=== PATIENT | female | born 1990 ===

== ENCOUNTER → 2020-03-10 | Outpatient (CLI) | payer OTHER | END | disposition home or self-care (01) | LOC: PRENATAL 15:00 | PROVIDERS: ATTEND Obstetrics & Gynecology Maternal & Fetal Medicine | DX: O35.0XX1 Maternal care for (suspected) central nervous system malformation in fetus, fetus 1 (principal); O35.3XX1 Maternal care for (suspected) damage to fetus from viral disease in mother, fetus 1; O98.512 Other viral diseases complicating pregnancy, second trimester; Z36.89 Encounter for other specified antenatal screening; Z3A.28 28 weeks gestation of pregnancy ==

== ENCOUNTER 2020-06-04 14:45 | Inpatient (IN) | payer OTHER ==
[~2020-06-04] VITALS: Ht 160 cm; Wt 3.2 kg
[2020-06-08] MEDS ORDERED: PRENATABS RX T1 EACH PO (08:32)
[2020-06-08] MEDS ORDERED: FOLIC ACID0.4 MG PO (08:33)
== END 2020-06-10 15:56 | disposition home or self-care (01) | DRG 788 ==
LOC: LDR 06-08 07:47 → OB/GYN 06-08 14:45 → O/R 06-08 19:56 → OB/GYN 06-08 21:58
PROVIDERS: ADMIT Obstetrics & Gynecology; ATTEND Obstetrics & Gynecology
PROC: 10907ZC Drainage of Amniotic Fluid, Therapeutic from Products of Conception, Via Natural or Artificial Opening (ICD-10-PCS; 2020-06-08)
PROC: 3E0P7VZ Introduction of Hormone into Female Reproductive, Via Natural or Artificial Opening (ICD-10-PCS; 2020-06-08)
PROC: 4A1HXFZ Monitoring of Products of Conception, Cardiac Rhythm, External Approach (ICD-10-PCS; 2020-06-08)
PROC: 10D00Z1 Extraction of Products of Conception, Low, Open Approach (ICD-10-PCS; principal; 2020-06-08 19:00)
DX: O65.9 Obstructed labor due to maternal pelvic abnormality, unspecified (principal); O62.1 Secondary uterine inertia; O48.0 Post-term pregnancy; Z3A.40 40 weeks gestation of pregnancy; Z37.0 Single live birth; Z20.822 Contact with and (suspected) exposure to COVID-19